=== PATIENT | female | born 1970 | race Caucasian/White ===

== ENCOUNTER → 2023-09-23 17:24 | Outpatient (REF) | payer OTHER, SELFPAY | LOC: WDC 17:24 | PROVIDERS: ATTENDING PHYSICIAN Nurse Practitioner Adult Health; FAMILY PHYSICIAN Family Medicine | DX: Z12.31 Encounter for screening mammogram for malignant neoplasm of breast (principal); Z80.3 Family history of malignant neoplasm of breast | CPT/HCPCS: 77063; 77067 ==

== ENCOUNTER → 2024-06-30 12:59 | Outpatient (REF) | payer OTHER, SELFPAY | LOC: WDC 12:59 | PROVIDERS: ATTENDING PHYSICIAN Nurse Practitioner Adult Health; FAMILY PHYSICIAN Family Medicine | DX: Z12.31 Encounter for screening mammogram for malignant neoplasm of breast (principal); Z80.3 Family history of malignant neoplasm of breast | CPT/HCPCS: 76641 ==

== ENCOUNTER 2024-08-12 12:47 | Emergency (ER) | payer OTHER, SELFPAY ==
[2024-08-12 12:48] VITALS: BP 153/96
--- NOTE | 2024-08-12 13:45 | ED.GENMED ---
History of Present Illness
General
Chief Complaint: Vascular Symptoms
Time Seen by Provider: 08/12/24 13:22
History of Present Illness
History of Present Illness:
Patient is a 53-year-old woman who is otherwise healthy presenting to the emergency department with finger discoloration. Patient states that yesterday she noticed her left pinky finger was purple and then white. It would go back to normal. She
is unclear what triggered it. She was having some numbness tingling that has since resolved. No recent trauma. No family history of clotting disorders. It does state that since she has been here the symptoms have resolved. On evaluating
patient's pictures from yesterday she does have some discoloration that is purple and then some pale white to the distal aspect of the left pinky.
Past History
Past History
ED Past Medical History: Other (Anemia) and Other (Uterine fibroids)
ED Past Surgical History:
Social History
Tobacco: Smoker
Alcohol: None
Drug: None
Personal:
Living: with family
Phy Exam
Physical Exam
Physical Exam:
GENERAL: in no acute distress
HEENT: normocephalic, extraocular movements intact
NECK: normal inspection
RESPIRATORY: no respiratory distress
CARDIOVASCULAR: regular rate and rhythm
EXTREMITIES: non-tender, no edema/swelling, full range of motion equal strength, normal cap refill, normal sensation to the left hand
NEUROLOGIC: awake and alert, moves all extremities
SKIN: warm
Course
Vital Signs
Initial and Last Documented VS:
Initial Vital Signs
Temp Pulse Resp BP Pulse Ox
98.4 F 56 16 153/96 96
08/12/24 12:48 08/12/24 12:48 08/12/24 12:48 08/12/24 12:48 08/12/24 12:48
Last Documented Vital Signs
Temp Pulse Resp BP Pulse Ox
98.4 F 56 16 153/96 96
08/12/24 12:48 08/12/24 12:48 08/12/24 12:48 08/12/24 12:48 08/12/24 12:48
MDM/Problems Addressed
Differential Diagnosis Includes:
Patient is a 53-year-old presenting to the emergency department with skin color changes to her left pinky finger that have now resolved. Vitals unremarkable and on exam patient has a normal-appearing left pinky with normal sensation cap refill and
equal strength. Based off pictures and history it does seem consistent with Raynaud's. Considered arterial occlusion though symptoms have resolved. Other consideration was venous stasis or DVT though symptoms have resolved. No traumatic injuries
to suggest otherwise. No signs of skin infection. No family history of coagulating disorders. It is reassuring that all symptoms have resolved at this time. Patient provide education on Raynaud's phenomenon. Will discharge at this time. Strict
return precautions given.
*Critical Care Note
Total Time (30-74mins, 75-104mins- exclusive of procedures): Not Applicable
ED Attending Note
-
Portions of this chart may have been created with voice recognition software.� Occasional wrong word or��sound alike� substitutions may have occurred due to the inherent limitations of voice recognition software.
Discharge Plan
Departure
Patient Disposition: Home (Routine Discharge)
Date of Disposition: 08/12/24
Time of Disposition: 13:43
Patient with high blood pressure during this ER visit?: Yes
Discharge Problem:
Raynaud's phenomenon (by history or observed)
Instructions: Raynaud phenomenon
Prescriptions:
No Action
erythromycin 1 APPLIC ointment
1 applic OPHTHALMIC TID Qty: 1 0RF
Referrals:
Daniel Marie DO [Family Provider] -
Interventions
Interventions:
*Risk Screen - Suicide Last Done: 08/12/24 12:48
*Neglect/Abuse Screening Last Done: 08/12/24 12:48
Discharge Date and Time
Print Language: [id number]
== END 2024-08-12 14:00 | disposition home or self-care (01) ==
LOC: EMR 12:47
PROVIDERS: EMERGENCY PHYSICIAN Student in an Organized Health Care Education/Training Program; FAMILY PHYSICIAN Family Medicine
DX: I73.00 Raynaud's syndrome without gangrene (principal); R03.0 Elevated blood-pressure reading, without diagnosis of hypertension; F17.200 Nicotine dependence, unspecified, uncomplicated
CPT/HCPCS: 99282

== ENCOUNTER → 2024-09-27 17:25 | Outpatient (REF) | payer OTHER, SELFPAY | LOC: WDC 17:25 | PROVIDERS: ATTENDING PHYSICIAN Nurse Practitioner Adult Health; FAMILY PHYSICIAN Family Medicine | DX: Z12.31 Encounter for screening mammogram for malignant neoplasm of breast (principal); Z80.3 Family history of malignant neoplasm of breast | CPT/HCPCS: 77063; 77067 ==